=== PATIENT | male | born 1980 | race African-American/Black ===

== ENCOUNTER 2016-12-02 10:02 | Day surgery (SDC) | payer MEDICARE, OTHER ==
[2016-11-29 12:06] LABS: BASOPHILS 0.7 %; BASOPHILS ABSOLUTE 0.04 10/3/uL (0.0-0.16); EOSINOPHILS 10.6 %; EOSINOPHILS ABSOLUTE 0.63 10/3/uL (0.0-0.53); HEMATOCRIT 27.1 % (40.0-51.0); HEMOGLOBIN 9.3 g/dL (13.6-17.8); IMMATURE GRANULOCYTES 0.3 %; IMMATURE GRANULOCYTES ABSOLUTE 0.02 10/3/uL (0.0-0.11); LYMPHOCYTES 26.8 %; LYMPHOCYTES ABSOLUTE 1.59 10/3/uL (0.67-4.30); MANUAL DIFF NO %; MEAN CORPUS HGB CONC 34.3 g/dL (32.0-36.0); MEAN CORPUSCULAR HEMOGLOB 33.1 pg (26.0-34.0); MEAN CORPUSCULAR VOLUME 96.4 fL (80-100); MEAN PLATELET VOLUME 9.9 fL (9.2-13.0); MONOCYTES 4.7 %; MONOCYTES ABSOLUTE 0.28 10/3/uL (0.21-1.20); NEUTROPHILS 56.9 %; NEUTROPHILS ABSOLUTE 3.38 10/3/uL (2.02-8.40); PLATELET COUNT 252 10/3/uL (150-400); RBC DISTRIBUTION WIDTH 12.9 % (12.0-16.0); RED CELL COUNT 2.81 10/6/uL (4.7-6.1); WHITE BLOOD CELLS 5.9 10/3/uL (4.5-10.5)
[2016-11-29 12:13] LABS: INTERNATIONAL NORMAL RATI 1.2 UNITS (-); PROTIME (NOT ORD) 14.6 SEC (12.0-14.5)
[2016-11-29 12:23] LABS: BUN (BLOOD UREA NITROGEN) 56 MG/DL (6-23); CALCIUM, SERUM 8.8 MG/DL (8.5-10.4); CHLORIDE, SERUM 103 MMOL/L (96-112); CO2 (CARBON DIOXIDE) 25 MMOL/L (24-34); GFR AFRICAN AMERICAN 5 ML/MIN (>=60); GFR NON AFRICAN AMERICAN 4 ML/MIN (>=60); GLUCOSE, SERUM 89 MG/DL (60-99); POTASSIUM, SERUM 5.2 MMOL/L (3.5-5.3); SODIUM, SERUM 138 MMOL/L (135-148)
--- NOTE | ~2016-12-02 | OP ---
Record Of Operation [facility] [address] [place]. [address] NAME: BOSTON LATHAM : 82 STATUS : [facility]#: [id number] AGE: 36 ADM/REG DATE : 12/02/16 MR#: [id number] REPORT SERV DATE: 12/07/16 DICTATED BY: [place] DATE: 12/06/16 REPORT STATUS : Draft TRANSCRIBED BY: LUI SMANUEL DATE: 12/06/16 DATE OF PROCEDURE: 12/02/2016 PREPROCEDURE DIAGNOSIS: Failing left arm AV fistula. POSTOPERATIVE DIAGNOSIS: Failing left arm AV fistula with failure to mature secondary to multiple tributaries. PROCEDURE PERFORMED: Elevation of the left arm AV fistula, ligation of multiple tributaries. SURGEON: Westley [place] M.D. ANESTHESIA: General. COMPLICATIONS: None. INDICATION FOR PROCEDURE: Secondary to this very pleasant 36-year-old gentleman presenting with evidence of a failure to mature AV fistula despite attempted endovascular maturation. Recommendations were made for elevation of the fistula and ligation of any additional branches that might be causing slight thinning effect. Risks and benefits discussed with patient. DETAILS OF PROCEDURE: The patient was brought to the endovascular operating room, placed in supine position, prepped and draped in routine sterile fashion to the left upper extremity. The fistula was then mapped with a noninvasive ultrasound testing. Pictures of these structures were taken and placed on the chart. Incision was then made over the region of the fistula as it is determined by ultrasound. Dissection proceeded down to the fascia which was loop controlled and skeletonized along its length. Approximately 4-5 different branches were ligated and divided secondary to multiple venous tributaries. With this completed, the deep layers were closed together leaving a shallow trench for the fistula. The skin itself was then skeletonized and then closed with Vicryl suture. Monocryl was used to close the skin. Steri-Strips dressings were applied. The patient tolerated the procedure well and was transferred to recovery room stable condition with excellent thrill in the fistula. BAILEY/LUIS MANUEL Westley Lake M.D. / [id number] CC: Westley Lake M.D.
[~2016-12-02 10:02] MED LIST: COREG6 PO; L20 PO; PROTONIX20 MG PO
[2016-12-02 10:13] LABS: BUN (BLOOD UREA NITROGEN) 29 MG/DL (6-23); CALCIUM, SERUM 8.8 MG/DL (8.5-10.4); CHLORIDE, SERUM 102 MMOL/L (96-112); CO2 (CARBON DIOXIDE) 27 MMOL/L (24-34); CREATININE 7.01 MG/DL (0.70-1.30); GFR AFRICAN AMERICAN 11 ML/MIN (>=60); GFR NON AFRICAN AMERICAN 9 ML/MIN (>=60); GLUCOSE, SERUM 94 MG/DL (60-99); POTASSIUM, SERUM 3.9 MMOL/L (3.5-5.3); SODIUM, SERUM 139 MMOL/L (135-148)
== END 2016-12-02 17:07 | disposition home or self-care (01) ==
LOC: SDC 10:02
PROVIDERS: Specialist
PROC: 03L80ZZ Occlusion of Left Brachial Artery, Open Approach (ICD-10-PCS; principal; 2016-12-02 12:15)
DX: T82.590A Other mechanical complication of surgically created arteriovenous fistula, initial encounter (principal); I10 Essential (primary) hypertension; J45.909 Unspecified asthma, uncomplicated; Z79.899 Other long term (current) drug therapy
CPT/HCPCS: 71020; 80048; 85025; 85610; 93005; A9270-GY; J0690; J2250; J2270; J2405; J3010; J3370